=== PATIENT | female | born 1985 | race Caucasian/White ===

== ENCOUNTER → 2024-05-30 10:35 | Outpatient (REF) | payer OTHER, SELFPAY | LOC: RAD 10:35 | PROVIDERS: ATTENDING PHYSICIAN Nurse Practitioner Family; FAMILY PHYSICIAN Family Medicine | DX: R22.0 Localized swelling, mass and lump, head (principal); R22.1 Localized swelling, mass and lump, neck; R07.89 Other chest pain | CPT/HCPCS: 76536; 93005 ==